=== PATIENT | female | born 1990 ===

== ENCOUNTER 2018-08-10 18:54 | Emergency (ER) | payer SELFPAY ==
[2018-08-10] MEDS ORDERED: Ketorolac Tromethamine 60 MG/2 ML VIAL ONE (19:31)
[2018-08-10] MEDS ORDERED: Acetaminophen 500 MG TAB ONE (19:31)
== END 2018-08-10 20:20 | disposition home or self-care (01) ==
LOC: ERS 18:54
DX: S00.03XA Contusion of scalp, initial encounter (principal); V43.62XA Car passenger injured in collision with other type car in traffic accident, initial encounter
CPT/HCPCS: 96372; J1885